=== PATIENT | female | born 1955 | race Caucasian/White ===

== ENCOUNTER 2016-10-24 15:08 | Emergency (ER) | payer BC ==
[~2016-10-24] VITALS: Ht 175.3 cm; Wt 90.0 kg
[2016-10-24 15:25] VITALS: Ht 175.3 cm; Wt 90.0 kg
[2016-10-24] MEDS ORDERED: ASPIRIN 324 MG CHEW PO STA (15:52)
--- NOTE | 2016-10-24 15:52 | EMERGENCY ROOM VISIT NOTE ---
History First contact with patient: 15:32 Chief Complaint: CARDIAC ASSESSMENT Stated Complaint: RACING HEART FOR 2DYAS,HEAVINESS AND COUGHING History of Present Illness The patient is a 61 year old female who presents to the Emergency Room via private vehicle with complaints of "heart racing for 2 days, heaviness and coughing". The patient states that she has had occasional heart racing now for quite some time. She states that the last few days, she has felt stressed at work, and states that she'll develop heart palpitations, of which are typically alleviated by deep breaths and pressing on the chest however is has not aborted the palpitations. She states that last 1 AM, she was awoken in her sleep with heart racing of which lasted 2 hours. She states that she then drove from her house in [place] appear to see family, and within the past hour had the feeling as if she had a cough, and chest heaviness accompanied by heart racing. She rates the chest discomfort as a 4/10. It was a 6/10 earlier. It is worse with a deep breath. She has no association with this to exertion. She does have a history of asthma, and it feels though she had some leg bruising/ pain over the past few weeks. She denies any smoking, shortness of breath, previous history of heart or lung problems, or leg pain at this time. She was recently treated with prednisone for her poison herve and finished this medication 1 week ago. Review of Systems A complete 10-point Review of Systems was discussed with the patient, with pertinent positives and negatives listed in the History of Present Illness. All remaining Review of Systems questions can be considered negative unless otherwise specified. Past Medical/Surgical History Asthma, stomach problems, modified radical mastectomy, reconstructive abdominal flap, ongoing UTIs. Family History Heart disease, blood pressure, cancer. Parents are both living. Social History Smoking Status: Never Smoker Patient lives in [place]. Current/Historical Medications Scheduled B-Complex W/ Folic Acid (B Complex), 1 TAB PO DAILY Cholecalciferol (Vitamin D), 5,000 UNITS PO DAILY [Healthy Liver], 1 TAB PO DAILY Physical Exam Vital Signs Date Time Temp Pulse Resp B/P (MAP) Pulse Ox O2 Delivery O2 Flow Rate FiO2 10/24/16 19:24 37.0 80 14 130/81 99 10/24/16 19:08 80 14 99 10/24/16 19:01 130/81 10/24/16 18:38 78 19 98 10/24/16 18:31 121/83 10/24/16 18:08 74 19 98 10/24/16 18:01 135/83 10/24/16 17:52 123/85 10/24/16 17:49 153/101 10/24/16 17:38 74 23 98 10/24/16 17:08 78 16 96 10/24/16 16:38 83 16 10/24/16 16:17 85 10/24/16 16:12 82 17 140/87 98 Room Air 10/24/16 16:11 98 Room Air 10/24/16 16:11 140/87 10/24/16 16:08 86 27 10/24/16 15:29 97 Room Air 10/24/16 15:25 37.0 91 16 131/85 95 Room Air Physical Exam VITAL SIGNS - Vital signs and nursing notes were reviewed. Patient is afebrile , blood pressure 131/85, not tachycardic and is saturating well on room air 95%. GENERAL -61-year-old female appearing her stated age who is in no acute distress. Communicates well with provider and answers questions appropriately. SKIN - there are a few well healed excoriations overlying the left leg, and distal right ventral wrist. This is consistent with healing poison herve. HEAD - NC/AT. EYES - . Sclera anicteric. Palpebral conjunctiva pink and moist with no injection noted. EARS - No deformities of external structures noted on gross examination bilaterally. NOSE - Midline and without cyanosis. No epistaxis or purulent drainage noted. MOUTH/OROPHARYNX - Without perioral cyanosis. NECK - Neck with FROM. No meningismus. LUNGS - Chest wall symmetric without accessory muscle use, intercostals retractions, or central cyanosis. Normal vesicular breath sounds CTA B/L. No wheezes, rales, or rhonchi appreciated. CARDIAC - RRR with S1/S2. No murmur, rubs, or gallops appreciated. ABDOMEN - Abdominal contour without pulsations or visible masses. BS normoactive all four quadrants. No tenderness, palpable masses, hepatosplenomegaly, or ascites noted. Medical Decision & Procedures ER Provider Diagnostic Interpretation: CHEST ONE VIEW PORTABLE CLINICAL HISTORY: "heart racing", chest pressure COMPARISON STUDY: No previous studies for comparison. FINDINGS: Lung volumes are normal. Lungs are clear. There is no pneumothorax or pleural effusion. Pulmonary vascularity is normal. Cardiomediastinal silhouette is normal. There are probable right breast surgical clips. IMPRESSION: No acute cardiopulmonary findings. Electronically signed by: Dwight Manzo M.D. 10/24/2016 5:08 PM Dictated Date/Time: 10/24/2016 5:08 PM Laboratory Results 10/24/16 16:10 Red Blood Count 5.10, Mean Corpuscular Volume 85.7, Mean Corpuscular Hemoglobin 29.4, Mean Corpuscular Hemoglobin Concent 34.3, Mean Platelet Volume 9.6, Neutrophils (%) (Auto) 50.3, Lymphocytes (%) (Auto) 33.6, Monocytes (%) (Auto) 12.0, Eosinophils (%) (Auto) 3.6, Basophils (%) (Auto) 0.3, Neutrophils # (Auto ) 3.12, Lymphocytes # (Auto) 2.08, Monocytes # (Auto) 0.74, Eosinophils # (Auto ) 0.22, Basophils # (Auto) 0.02 10/24/16 16:10 Test 10/24/16 16:10 10/24/16 16:26 10/24/16 17:58 White Blood Count 6.19 K/uL (4.8-10.8) Red Blood Count 5.10 M/uL (4.2-5.4) Hemoglobin 15.0 g/dL (12.0-16.0) Hematocrit 43.7 % (37-47) Mean Corpuscular Volume 85.7 fL (80-100) Mean Corpuscular Hemoglobin 29.4 pg (25-34) Mean Corpuscular Hemoglobin Concent 34.3 g/dl (32-36) Platelet Count 234 K/uL (130-400) Mean Platelet Volume 9.6 fL (7.4-10.4) Neutrophils (%) (Auto) 50.3 % Lymphocytes (%) (Auto) 33.6 % Monocytes (%) (Auto) 12.0 % Eosinophils (%) (Auto) 3.6 % Basophils (%) (Auto) 0.3 % Neutrophils # (Auto) 3.12 K/uL (1.4-6.5) Lymphocytes # (Auto) 2.08 K/uL (1.2-3.4) Monocytes # (Auto) 0.74 K/uL (0.11-0.59) Eosinophils # (Auto) 0.22 K/uL (0-0.5) Basophils # (Auto) 0.02 K/uL (0-0.2) RDW Standard Deviation 40.4 fL (36.4-46.3) RDW Coefficient of Variation 12.8 % (11.5-14.5) Immature Granulocyte % (Auto) 0.2 % Immature Granulocyte # (Auto) 0.01 K/uL (0.00-0.02) Prothrombin Time 10.3 SECONDS (9.0-12.0) Prothromb Time International Ratio 1.0 (0.9-1.1) Activated Partial Thromboplast Time 27.5 SECONDS (21.0-31.0) Partial Thromboplastin Ratio 1.1 Anion Gap 6.0 mmol/L (3-11) Est Creatinine Clear Calc Drug Dose 73.6 ml/min Estimated GFR () 74.0 Estimated GFR (Non- 63.8 BUN/Creatinine Ratio 21.9 (10-20) Calcium Level 9.0 mg/dl (8.5-10.1) Magnesium Level 2.1 mg/dl (1.8-2.4) Total Bilirubin 0.2 mg/dl (0.2-1) Aspartate Amino Transf (AST/SGOT) 27 U/L (15-37) Alanine Aminotransferase (ALT/SGPT) 43 U/L (12-78) Alkaline Phosphatase 95 U/L (45-117) Total Protein 7.2 gm/dl (6.4-8.2) Albumin 3.7 gm/dl (3.4-5.0) Globulin 3.5 gm/dl (2.5-4.0) Albumin/Globulin Ratio 1.1 (0.9-2) Thyroid Stimulating Hormone (TSH) 0.910 uIu/ml (0.300-4.500) Lyme Disease IgG Antibody NEG (NEG) Lyme Disease IgM Antibody NEG (NEG) Bedside D-Dimer 212 ng/mlFEU (0-450) TR-Xxr-L-Type Natriuretic Peptide 17 pg/ml (0-900) Bedside Troponin I < 0.030 ng/ml (0-0.045) Medications Administered Medications (Trade) Dose Ordered Sig/Brandy Route Start Time Stop Time Status Last Admin Dose Admin Aspirin (Aspirin Chew) 324 mg NOW STAT PO 10/24/16 15:52 10/24/16 15:53 DC 10/24/16 16:09 324 MG ED Course Patient was seen and evaluated in room C 10. Aspirin was ordered. Troponins were negative 2. Testing was negative for acute process. Case was discussed with my attending. Patient was happy with her care today, was educated upon worrisome symptoms which to return, and was discharged home. Medical Decision Patient was seen and evaluated as above. She presents to us today with chest pressure, palpitations and slight shortness of breath. She has a history of asthma. Her heart score is 3 or less. No underlying heart history. Her BMI is under 30. Bedside EKG reveals normal sinus rhythm, with PACs. I suspect the PACs may be contributing to her noticeable heart palpitations. CBC reveals no lives at ptosis or anemia. Coag studies unremarkable. D-dimer negative. CMP reveals chloride high at 109, BUN high at 21, she is to follow-up with family doctor regarding this kidney function elevation. Troponin negative 2. TSH unremarkable no concerning evidence of liver failure. Lyme disease negative. Chest x-ray unremarkable. At this time I believe the patient is stable for outpatient management. She was given aspirin upon arrival. She is to follow-up with her family doctor regarding today's visit for further evaluation and management. The case was thoroughly discussed with my attending. The patient was educated upon worrisome symptoms which return, had questions or discharge, and was discharged home in good condition. In evaluation treatment this patient following differential diagnoses entertained: MT, PE, costochondritis, asthma exacerbation, COPD, among others. Blood Pressure Screening Patient's blood pressure: Elevated blood pressure Blood pressure disposition: Elevated BP felt to be situational, Referred to PCP Impression Primary Impression: Heart palpitations Additional Impression: PAC (premature atrial contraction) Departure Information Dispostion Home / Self-Care Condition GOOD Referrals No Doctor, Assigned (PCP) Patient Instructions [facility] Additional Instructions You have been treated in the Emergency Department your palpitations, and chest heaviness. Laboratory results and imaging studies have ruled out any emergent causes for your symptoms which would warrant admission or surgery. For pain control, you can use the following [id number] medicines (if >12 yo): - Regular strength (325mg/tab) Tylenol (acetaminophen) 2 tabs every 4-6 hours as needed. Do not exceed 12 tablets in a 24 hour period. Avoid taking more than 3 grams (3000 mg) of Tylenol per day. This includes any other sources of acetaminophen you may take on a regular basis. - Regular strength (200 mg/tab) Advil (ibuprofen) 1-2 tabs every 4-6 hours as needed. Do not exceed a dose of 3200 mg per day. Drink plenty of water and stay well hydrated. As with any trip to the Emergency Department, you should follow-up with your Primary Care Provider from today's visit. Please schedule follow-up as soon as possible with her family doctor for further evaluation management of her symptoms. Please return with worsening of your symptoms, or any new/concerning symptoms. Problem Qualifiers
[2016-10-24 16:11] VITALS: O2SAT 98
[2016-10-24 16:25] LABS: BASO % 0.3 %; BASO ABS # 0.02 K/uL (0-0.2); COMPLETE YES; EOS % 3.6 %; HEMATOCRIT 43.7 % (37-47); IG% 0.2 %; LYMPH % 33.6 %; LYMPH ABS # 2.08 K/uL (1.2-3.4); MEAN CELL VOLUME 85.7 fL (80-100); MEAN CORPUSCULAR HEMOGLOBIN 29.4 pg (25-34); MEAN CORPUSCULAR HGB CONC 34.3 g/dl (32-36); MEAN PLATELET VOLUME 9.6 fL (7.4-10.4); NEUT % 50.3 %; PLATELET COUNT 234 K/uL (130-400); WHITE BLOOD COUNT 6.19 K/uL (4.8-10.8)
[2016-10-24] MEDS ORDERED: B-COTAB53 PO (16:32)
[2016-10-24] MEDS ORDERED: [UNRECOGNIZED DRUG - OTHER] PO (16:32)
[2016-10-24] MEDS ORDERED: CHOL1TAB42 PO (16:32)
[2016-10-24 16:36] LABS: PARTIAL THROMBOPLASTIN RATIO 1.1; PROTHROMBIN TIME (PATIENT) 10.3 SECONDS (9.0-12.0)
[2016-10-24 16:41] LABS: BUN/CREATININE RATIO 21.9 (10-20); CREATININE 0.96 mg/dl (0.60-1.20); MAGNESIUM 2.1 mg/dl (1.8-2.4); POTASSIUM 3.8 mmol/L (3.5-5.1)
[2016-10-24 16:48] LABS: POINT OF CARE PRO-BNP 17 pg/ml (0-900); POINT OF CARE TROPONIN I < 0.030 ng/ml (0-0.045)
[2016-10-24 16:51] LABS: ALB/GLOB RATIO 1.1 (0.9-2); THYROID STIMULATING HORMONE 0.91 uIu/ml (0.300-4.500)
[2016-10-24 17:05] LABS: LYME DISEASE AB IGG NEG (NEG); LYME DISEASE AB IGM NEG (NEG)
--- NOTE | 2016-10-24 17:10 | DIAGNOSTIC IMAGING REPORT ---
CHEST ONE VIEW PORTABLE CLINICAL HISTORY: "heart racing", chest pressure COMPARISON STUDY: No previous studies for comparison. FINDINGS: Lung volumes are normal. Lungs are clear. There is no pneumothorax or pleural effusion. Pulmonary vascularity is normal. Cardiomediastinal silhouette is normal. There are probable right breast surgical clips. IMPRESSION: No acute cardiopulmonary findings. Electronically signed by: Dwight Manzo M.D. 10/24/2016 5:08 PM Dictated Date/Time: 10/24/2016 5:08 PM
[2016-10-24 19:24] VITALS: BP 130/81; PULSE 80; TEMP 37; O2SAT 99
== END 2016-10-24 19:25 | disposition home or self-care (01) ==
LOC: C.EDB 15:09 → C.EDC 19:25
DX: R00.2 Palpitations (principal); I49.1 Atrial premature depolarization; J45.909 Unspecified asthma, uncomplicated